=== PATIENT | male | born 1965 | race Caucasian/White ===

== ENCOUNTER 2022-07-20 08:33 | Outpatient (CLI) | payer OTHER, SELFPAY ==
--- NOTE | 2022-08-15 16:33 | WPDSLEEPSTUD ---
Sleep Study Date of Study: 07/20/22 Ordering Provider: Jerome Arrieta, Interpreting Physician: Inge Ramirez MD Sleep Study Type: Split Polysomnogram Height: 1.78 m Weight: 73.936 kg Body Mass Index: 23.3 Neck Circumference (inches): 17 [place] Swan: 14 Reason for Sleep Study Hypersomnolence Sleep History Adolph Baltazar is a 56-year-old man with a long history of snoring and daytime fatigue. He wakes up feeling non-refreshed. He has anxiety. His [place] Swan Sleepiness Scale score is 13, elevated. He snores at night, frequently loudly. He does not awaken from sleep feeling short of breath and does not awaken at night with heartburn, belching or coughing. He frequently has trouble sleeping with a cold. He does not wake up gasping for breath at night. He does not have witnessed apneas reported to him by others. He does not sweat excessively at night or notice his heart pounding or beating irregularly night. He frequently falls asleep during the day, rarely falls asleep involuntarily, never falls asleep while driving. He does not have loss of muscle tone with strong emotion. He does not have daytime difficulties due to excessive sleepiness. He is disabled. Previously he was a [employer] driver. He does not feel paralyzed on waking or falling asleep. He does not have vivid dreamlike scenes on waking or falling asleep. He does not feel afraid to go to sleep. He does not have nightmares. He rarely remembers his dreams. He does not have racing thoughts. He does not feel sad, depressed or anxious. He rarely has muscular tension. He does not notice parts of his body jerking. He does not kick at night. He rarely has crawling and aching feelings in his legs. He rarely has any kind of leg pain at night. He does not have morning jaw pain. He does not grind his teeth during sleep. He is not bothered by pain during the day or awakened by pain during the night. He rarely wakes up feeling stiff in the morning with sore achy muscles. He does not wake up with pain in the neck and spine. Normal bedtime is 9:00 p.m. falling asleep quickly, waking once at night. He is able to return to sleep. He wakes the morning at 7:00 a.m.. Weekend schedule is the same. He estimates getting between 7 and 8 hours of sleep at night. He takes naps in the afternoon or evening. A short nap lasting 10 or 15 minutes may be refreshing. He feels better in the morning compared to other times of day. Habits: Never smoked tobacco. No caffeine, alcohol or recreational substances. [facility] Past Medical History Medical History (Updated 08/15/22 @ 17:31 by Inge Ramirez MD) Essential hypertension Hyperlipidemia Mixed anxiety and depressive disorder Type 2 diabetes mellitus without complication Surgical History Surgical History (Updated 08/15/22 @ 16:39 by Inge Ramirez MD) S/P bilateral BKA (below knee amputation) 2014 Social History Social History (Updated 08/15/22 @ 17:26 by Inge Ramirez MD) Smoking status: Never smoker Alcohol intake: never Substance use: never Medications Medications: aspirin 81 mg delayed release atorvastatin 40 mg fenofibrate acid 160 mg daily glimepiride 1 mg b.i.d. Januvia 100 mg daily Jardiance 25 mg daily lisinopril 20 mg a day metformin ER 500 mg extended release 2 tablets twice a day with meals sertraline 100 mg daily Victoza 0.6 mg/ 0.1 mL under the skin daily Sleep Procedure This test was performed using the [employer] multiple channel system including EOG, EEG, submental EMG, EKG, nasal and oral airflow using thermistors and nasal pressure sensors, chest and abdominal belts for body position data, and pulse oximetry. Video monitoring was also performed. The study was scored using CMS guidelines. He usually sleeps on his right side. After the baseline portion, the patient met criteria for a titration with an apnea-hypopnea index 13.3 and desaturation 81%. He used a medium [employer]
[2022-08-15 17:32] VITALS: BMI 23.3
--- NOTE | 2023-03-03 09:11 | SLEEP ---
pt returned pap device
== END 2022-07-21 05:57 | disposition home or self-care (01) ==
LOC: ANHCSM 08:41
PROVIDERS: PCP Family Medicine; Visit Provider Internal Medicine Pulmonary Disease
DX: G47.33 Obstructive sleep apnea (adult) (pediatric) (principal); G47.61 Periodic limb movement disorder; G47.36 Sleep related hypoventilation in conditions classified elsewhere
CPT/HCPCS: 95811